=== PATIENT | male | born 1985 | race Caucasian/White ===

== ENCOUNTER 2020-05-01 11:13 | Emergency (ER) | payer SELFPAY ==
[2020-05-01 11:14] VITALS: BP 142/73; PULSE 64; RESP 16; TEMP 36.9; O2SAT 100; BMI 24.2
--- NOTE | 2020-05-01 11:33 | HMH.EDUTC ---
[facility] [place] Impression: Colitis Disposition: Home, Self-Care Condition on Discharge: Good Instructions: DI for Acute Abdomen Additional Instructions: Use the ondansetron for nausea as needed and take the entire course of metronidazole. Return to the ED for any new or worsening symptoms including persistent nausea and vomiting or severe persistent bleeding. Prescriptions: metroNIDAZOLE [Flagyl 500mg Tablet] 500 mg PO Q8H 7 Days #21 tab Prescription Printed Ondansetron [Zofran 4mg ODT] 4 mg PO TIDP PRN 3 Days #9 tab PRN Reason: Nausea Prescription Printed Referrals: Jem Raygoza MD [Staff Physician] - PCP,No [Primary Care Provider] - Medical Decision Making - Medical Records Medical records reviewed: No: I reviewed the patient's medical records. - Melchor Inquiry Pt receiving controlled substance: No Vital Signs: 05/01/20 11:14 05/01/20 11:44 05/01/20 14:14 Temperature 98.4 F 98 F Temperature Source Oral Oral Pulse Rate Pulse Rate [Right] 64 73 74 Respiratory Rate 16 16 20 Blood Pressure Blood Pressure [Right Arm] 142/73 H 122/69 105/55 L Blood Pressure Mean [Right Arm] 96 86 71 Blood Pressure Source Blood Pressure Source [Right Arm] Automatic Cuff Blood Pressure Position Blood Pressure Position [Right Arm] Sitting Sitting 02 Sat by Pulse Oximetry 100 98 99 Oxygen Delivery Method Room Air Room Air Room Air 05/01/20 15:08 05/01/20 16:59 Temperature 98.0 F Temperature Source Oral Pulse Rate 65 Pulse Rate [Right] 62 Respiratory Rate 18 20 Blood Pressure 100/60 L Blood Pressure [Right Arm] 101/60 L Blood Pressure Mean [Right Arm] 73 Blood Pressure Source Automatic Cuff Blood Pressure Source [Right Arm] Automatic Cuff Blood Pressure Position Sitting Blood Pressure Position [Right Arm] Sitting 02 Sat by Pulse Oximetry 99 Oxygen Delivery Method Room Air Room Air - Lab Data Lab Results 05/01/20 12:00: Stool Occult Blood Negative 05/01/20 12:09: Urine Color Yellow, Urine Appearance Clear, Urine pH 6.0, Ur Specific [place] >= 1.030, Urine Protein Negative, Urine Glucose (UA) Negative, Urine Ketones 2+, Urine Blood Trace-l, Urine Nitrate Negative, Urine Bilirubin Negative, Urine Urobilinogen 0.2, Ur Leukocyte Esterase Negative, Urine RBC 10-20, Urine WBC None, Ur Squamous Epith Cells Occasional, Amorphous Sediment 1+, Urine Bacteria None, Urine Mucus 1+ 05/01/20 12:25: WBC 5.2, RBC 5.03, Hgb 14.6, Hct 42.1, MCV 83.7, MCH 29.1, MCHC 34.8, RDW 13.2, Plt Count 182, MPV 8.5, Neut % (Auto) 82.7 H, Lymph % (Auto) 7.5 L, [place] % (Auto) 8.1, Eos % (Auto) 0.9, Baso % (Auto) 0.6, Neut # (Auto) 4.3, Lymph # (Auto) 0.4 L, [place] # (Auto) 0.4, Eos # (Auto) 0.1, Baso # (Auto) 0.0 05/01/20 12:25: Sodium 136, Potassium 3.7, Chloride 101, Carbon Dioxide 26, Anion Gap 12.7, BUN 14, Creatinine 0.80, Estimated Creat Clear 122, Estimated GFR 109, Est GFR ( Amer) 132, Glucose 112 H, Calcium 9.7, Total Bilirubin 0.7, AST 30, ALT 18, Alkaline Phosphatase 62, Total Protein 8.3 H, Albumin 4.8, Globulin 3.5 H, Albumin/Globulin Ratio 1.4, Amylase 58, Lipase 30 05/01/20 12:25: SARS-CoV-2 IgG Ab (Rapid) Negative, SARS-CoV-2 IgM Ab (Rapid) Negative 05/01/20 12:25: Monoscreen Negative Result diagrams: 05/01/20 12:25 05/01/20 12:25 Orders (Tests/Meds): ED MEDICATIONS Discontinued Medications Generic Name Dose Route Start Last Admin Trade Name Freq PRN Reason Stop Dose Admin Hydromorphone HCl 1 mg 05/01/20 12:35 05/01/20 12:36 Hydromorphone 2mg/Ml Syringe IV 05/01/20 12:36 1 mg ONCE ONE Administration Hydromorphone HCl 1 mg 05/01/20 16:42 05/01/20 14:37 Hydromorphone 2mg/Ml Syringe IV 05/01/20 16:43 1 mg ONCE ONE Administration Sodium Chloride 1,000 mls @ 999 mls/hr 05/01/20 12:45 05/01/20 12:36 Sod Chlor 0.9% 1000ml Bag IV 05/01/20 13:45 999 mls/hr .Q1H1M MELISSA Administration Iopamidol 75 ml 05/01/20 12:49 05/01/20 12:49 I
--- NOTE | 2020-05-01 11:38 | PC.NURSE ---
called report to ER
[2020-05-01 11:44] VITALS: BP 122/69; PULSE 73; RESP 16; TEMP 36.6; O2SAT 98; BMI 22.1
--- NOTE | 2020-05-01 11:58 | CT_ITS ---
PROCEDURE: CT ABDOMEN PELVIS W CON CLINICAL INDICATION: bilateral lower abdominal pain Rectal bleeding COMPARISON: No exams were available for comparison TECHNIQUE: IV Contrast: 75ML Isovue 370 Oral Contrast None Axial images obtained with sagittal and coronal reformats. All CT scans at the facility use one or more dose reduction, viz: automated exposure control, ma/kV adjustment per patient size (including targeted exams where dose is matched to indication, i.e. head), or iterative reconstruction technique. FINDINGS: LOWER THORAX: No acute finding ABDOMEN & PELVIS: The liver has an unremarkable appearance. Spleen is enlarged at 16 cm. The adrenal glands and pancreas have an unremarkable appearance. No renal or ureteral calculi. No intestinal obstruction or free air. No evidence of appendicitis. The bowel gas pattern is nonspecific. There is a mild amount of retained colonic feces in the rectosigmoid region and remaining colon. There is mild thickening of the transverse colon.. Multiple unopacified bowel loops in the abdomen or pelvis which could obscure or mimic pathology. If symptoms persist, consider repeat exam with IV and oral contrast. Central calcification is noted in the prostate. No acute bony findings. IMPRESSION: 1. Mild thickening of the transverse colon. This is nonspecific and could be related to nondistention or mild colitis. 2. Splenomegaly. 3. Mild amount of retained colonic feces. Dictated by: Moise Pennington MD 05/01/2020 13:44 Moise Pennington MD in [place] 05/01/2020 13:44
--- NOTE | 2020-05-01 11:58 | HMH.EDABDPAI ---
ED Disposition Clinical Impression: Colitis Disposition: Home, Self-Care Condition on Discharge: Good Instructions: DI for Acute Abdomen Additional Instructions: Use the ondansetron for nausea as needed and take the entire course of metronidazole. Return to the ED for any new or worsening symptoms including persistent nausea and vomiting or severe persistent bleeding. Prescriptions: metroNIDAZOLE [Flagyl 500mg Tablet] 500 mg PO Q8H 7 Days #21 tab Prescription Printed Ondansetron [Zofran 4mg ODT] 4 mg PO TIDP PRN 3 Days #9 tab PRN Reason: Nausea Prescription Printed Referrals: Jem Raygoza MD [Staff Physician] - PCP,No [Primary Care Provider] - - Critical Care Critical Care Time: No Attestation: On 05/01/20, the high probability of a clinically significant, sudden or life threatening deterioration of the following system(s) required my full and direct attention, intervention and personal management. The time I documented below is in addition to time spent performing reported procedures but includes the following listed in this critical care notation. Medical Decision Making - Medical Records Medical records reviewed: Yes: I reviewed the patient's medical records. MR Comment: No relevant medical information in the chart - Melchor Inquiry Pt receiving controlled substance: No Vital Signs: 05/01/20 11:14 05/01/20 11:44 05/01/20 14:14 Temperature 98.4 F 98 F Temperature Source Oral Oral Pulse Rate Pulse Rate [Right] 64 73 74 Respiratory Rate 16 16 20 Blood Pressure Blood Pressure [Right Arm] 142/73 H 122/69 105/55 L Blood Pressure Mean [Right Arm] 96 86 71 Blood Pressure Source Blood Pressure Source [Right Arm] Automatic Cuff Blood Pressure Position Blood Pressure Position [Right Arm] Sitting Sitting 02 Sat by Pulse Oximetry 100 98 99 Oxygen Delivery Method Room Air Room Air Room Air 05/01/20 15:08 05/01/20 16:59 Temperature 98.0 F Temperature Source Oral Pulse Rate 65 Pulse Rate [Right] 62 Respiratory Rate 18 20 Blood Pressure 100/60 L Blood Pressure [Right Arm] 101/60 L Blood Pressure Mean [Right Arm] 73 Blood Pressure Source Automatic Cuff Blood Pressure Source [Right Arm] Automatic Cuff Blood Pressure Position Sitting Blood Pressure Position [Right Arm] Sitting 02 Sat by Pulse Oximetry 99 Oxygen Delivery Method Room Air Room Air - Lab Data Lab Results 05/01/20 12:00: Stool Occult Blood Negative 05/01/20 12:09: Urine Color Yellow, Urine Appearance Clear, Urine pH 6.0, Ur Specific [place] >= 1.030, Urine Protein Negative, Urine Glucose (UA) Negative, Urine Ketones 2+, Urine Blood Trace-l, Urine Nitrate Negative, Urine Bilirubin Negative, Urine Urobilinogen 0.2, Ur Leukocyte Esterase Negative, Urine RBC 10-20, Urine WBC None, Ur Squamous Epith Cells Occasional, Amorphous Sediment 1+, Urine Bacteria None, Urine Mucus 1+ 05/01/20 12:25: WBC 5.2, RBC 5.03, Hgb 14.6, Hct 42.1, MCV 83.7, MCH 29.1, MCHC 34.8, RDW 13.2, Plt Count 182, MPV 8.5, Neut % (Auto) 82.7 H, Lymph % (Auto) 7.5 L, [place] % (Auto) 8.1, Eos % (Auto) 0.9, Baso % (Auto) 0.6, Neut # (Auto) 4.3, Lymph # (Auto) 0.4 L, [place] # (Auto) 0.4, Eos # (Auto) 0.1, Baso # (Auto) 0.0 05/01/20 12:25: Sodium 136, Potassium 3.7, Chloride 101, Carbon Dioxide 26, Anion Gap 12.7, BUN 14, Creatinine 0.80, Estimated Creat Clear 122, Estimated GFR 109, Est GFR ( Amer) 132, Glucose 112 H, Calcium 9.7, Total Bilirubin 0.7, AST 30, ALT 18, Alkaline Phosphatase 62, Total Protein 8.3 H, Albumin 4.8, Globulin 3.5 H, Albumin/Globulin Ratio 1.4, Amylase 58, Lipase 30 05/01/20 12:25: SARS-CoV-2 IgG Ab (Rapid) Negative, SARS-CoV-2 IgM Ab (Rapid) Negative 05/01/20 12:25: Monoscreen Negative Result diagrams: 05/01/20 12:25 05/01/20 12:25 Orders (Tests/Meds): ED MEDICATIONS Discontinued Medications Generic Name Dose Route Start Last Admin Trade Name Freq PRN Reason Stop Dose Admin Hydromorphone HCl 1 mg
[2020-05-01 12:26] LABS: Microscopic, Urine URINE MICROSCOPIC (MICROSCOPIC)
[2020-05-01 12:28] LABS: Appearance,Urine CLEAR (Clear); Bilirubin,Urine Negative (Negative); Blood, Urine TRACE-L (Negative); Color,Urine YELLOW (Yellow); Glucose,Urine (UA) Negative (Negative); Ketones,Urine 2+ (Negative); Leukocyte Esterase,Urine Negative (Negative); Nitrate,Urine Negative (Negative); Protein,Urine Negative (Negative); Specific Gravity, Urine >= 1.030 (1.005-1.030); Urobilinogen,Urine 0.2 EU/dl (0.2)
[2020-05-01 12:37] LABS: Basophils % 0.6 % (0.1-2.0); Eosinophils # 0.1 K/mm3 (0.0-0.4); Eosinophils % 0.9 % (0.1-12.0); Hematocrit 42.1 % (42.0-52.0); Hemoglobin 14.6 g/dL (14.1-18.0); Lymphocytes # 0.4 K/mm3 (0.7-4.5); Lymphocytes % 7.5 % (10-50); Mean Corpuscular HGB Conc 34.8 g/dL (31.8-35.4); Mean Corpuscular Hemoglobin 29.1 pg (27.0-31.2); Mean Corpuscular Volume 83.7 fl (80-94); Mean Platelet Volume 8.5 fl (7.4-10.4); Monocytes # 0.4 K/mm3 (0.1-1.0); Monocytes % 8.1 % (1.7-9.3); Neutrophils # 4.3 K/mm3 (1.8-7.8); Neutrophils % 82.7 % (37.0-80.0); Platelet Count 182 K/mm3 (142-424); Red Blood Count 5.03 M/mm3 (4.60-6.20); Red Cell Distribution Width 13.2 % (11.5-17.5); White Blood Count 5.2 K/mm3 (4.8-10.8)
[2020-05-01 12:38] LABS: Amorphous Sediment,Urine 1+ /lpf; Mucus,Urine 1+ /lpf; Squamous Epithelial Cell,Urine Occasional #/hpf (0-5)
[2020-05-01 12:46] LABS: Occult Blood,Stool Negative (Negative)
[2020-05-01 12:47] LABS: Alanine Aminotransferase 18 U/L (12-78); Albumin Level 4.8 g/dl (3.5-5.0); Albumin/Globulin Ratio 1.4 (1.1-1.8); Alkaline Phosphatase 62 U/L (38-126); Amylase 58 U/L (30-110); Anion Gap 12.7 mEq/L (5-15); Aspartate Amino Transferase 30 U/L (17-59); Bilirubin,Total 0.7 mg/dl (0.2-1.3); Blood Urea Nitrogen 14 mg/dl (9-20); Calcium 9.7 mg/dl (8.4-10.2); Carbon Dioxide 26 mmol/L (22.0-30.0); Chloride 101 mmol/L (98-107); Creatinine Clearance Estimated 122 mL/min (50-200); Estimated Glomerular Filt Rate 109 ml/min (>60); GFR (African American) 132 ML/MIN (>60); Globulin 3.5 g/dL (1.3-3.2); Glucose 112 mg/dl (74-100); Lipase 30 U/L (23-300); Potassium 3.7 mmoL/L (3.5-5.1); Sodium 136 mmol/L (136-145); Total Protein,Serum 8.3 g/dl (6.3-8.2)
[2020-05-01 13:27] LABS: Coronavirus 19 IgG Antibody Negative (Negative); Coronavirus 19 IgM Antibody Negative (Negative)
[2020-05-01 14:10] LABS: Monoscreen (Rapid) Negative (Negative)
[2020-05-01 14:14] VITALS: BP 105/55; PULSE 74; RESP 20; O2SAT 99
[2020-05-01 15:08] VITALS: BP 101/60; PULSE 62; RESP 18; O2SAT 99
[2020-05-01 16:59] VITALS: BP 100/60; PULSE 65; RESP 20; TEMP 36.7; O2SAT 99
== END 2020-05-01 17:01 | disposition home or self-care (01) ==
LOC: UTC 11:19 → ER 11:39
PROVIDERS: Emergency Provider Student in an Organized Health Care Education/Training Program
DX: Z20.828 Contact with and (suspected) exposure to other viral communicable diseases (principal); K52.9 Noninfective gastroenteritis and colitis, unspecified
CPT/HCPCS: 74177; 80053; 81001; 82150; 82272; 83690; 85025; 86318; 86328; 96365; 96375; 96376; 99283; G0328; J2405; Q9967